=== PATIENT | male | born 1990 | race Caucasian/White ===

== ENCOUNTER 2024-03-03 08:46 | Emergency (ER) | payer MEDICAID, SELFPAY ==
--- NOTE | 2024-03-03 08:45 | RT.EKG_ITS ---
APPROVED REPORT Exam: Resting ECG Reason for Exam: comparison to EKG he brought Patient Location: E HR:71 bpm ECG Measurements Heart Rate 71 AXIS NH 145 P 32 QRSd 86 QRS 16 QT 482 T 16 QTc 525 Conclusion Sinus rhythm...normal P axis, V-rate 60- 99 Prolonged QT interval...QTc >488mS I have reviewed and interpreted ECG and agree with software generated interpretation.
[2024-03-03 08:53] VITALS: BP 158/119; PULSE 74; RESP 18; TEMP 36.2; O2SAT 97
--- NOTE | 2024-03-03 09:10 | ED.GENADUL_ITS ---
Discharge Plan Disposition Patient Disposition: Eloped Discharge Details Chief Complaint: GenMedical Clinical Impression: Prolonged QT interval syndrome Primary Care Provider: Bailey Nevarez ED Provider: Luis Bartholomew Home Meds and New Rx's Prescriptions: No Action ibuprofen 800 MG tablet 800 mg PO TID Qty: 30 0RF methadone 10 MG/ML concentrate 170 mg PO DAILY Patient Comments: @ [facility] clinic Discharge Instructions Referrals: Lidya Hogan [ NON-[facility] STAFF PHYSICIAN] - Toya Sanchez [OSTEOPATHIC DOCTOR] - [facility] General Date/Time Provider Initiated Documentation: 03/03/24 08:54 . 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 He was planning on transitioning to weeklong dosing of his methadone at home, and because of this standard EKG was performed. QT was noted to be long at the clinic, and he was sent in for further assessment. Patient states that he is currently taking 170 mg daily. About a year ago he was 120 mg daily and has been gradually increasing over the last year. He started methadone in 2018. He denies any concerning family history of sudden , cardiac abnormalities, syncope, personal history of syncope, family history of pacemaker defibrillator, or other complaints. He does not take any other medications. He denies any other medication use. No other complaints at this time. No other modifying factors. Related Data Home Medications Medication Instructions Recorded Confirmed ibuprofen 800 mg tablet 800 mg PO TID ##30 03/04/14 03/03/24 methadone 10 mg/mL oral concentrate 170 mg PO DAILY 12/06/15 03/03/24 Previous Rx's Medication Instructions Recorded ibuprofen 800 mg tablet 800 mg PO TID ##30 03/04/14 Allergies Allergy/AdvReac Type Severity Reaction Status Date / Time banana [Banana] Allergy Severe Anaphylaxsi Unverified 03/03/24 08:54 s General Stated Complaint: GenMedical MANOJ: 3 Review of Systems All systems reviewed & are unremarkable except as noted in HPI and below Exam Narrative Exam Narrative: 1.Const: Well-nourished, Well-developed, appearing stated age 2.Eyes: PERRL, no conjunctival injection, and symmetrical lids. 3.ENT: Atraumatic external nose and ears. Moist MM. Neck: Symmetric, trachea midline, No thyromegaly. 4.CVS: +S1/S2, No murmurs or gallops. Peripheral pulses 2+ and equal in all extremities. Brisk capillary refill in all extremities. 5.RESP: Unlabored respiratory effort. Clear to auscultation bilaterally. No wheezes rales or rhonchi 6.GI: Soft, Nontender/Nondistended, No hepatosplenomegaly. No guarding or rebound. 7.MSK: Normocephalic/Atraumatic, Extremities w/o deformity or ttp No cyanosis or clubbing, Normal movement of all extremities 8.Skin: Warm, Dry. No rashes or lesions. 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 Sensation grossly intact, no focal neurologic deficits. 10.Psych: (AAO) x3. Appropriate mood and affect Course Vital Signs Vital signs: Vital Signs Temperature 36.2 C L 03/03/24 08:53 Pulse 74 03/03/24 08:53 Respiratory Rate 18 03/03/24 08:53 Blood Pressure 158/119 H 03/03/24 08:53 Pulse Oximetry 97 03/03/24 08:53 Temperature 36.2 C L 03/03/24 08:53 Temperature Source Skin 03/03/24 08:53 Pulse 74 03/03/24 08:53 Respiratory Rate 18 03/03/24 08:53 Respiratory Effort Normal, Non-Labored 03/03/24 09:03 Respiratory Depth Normal 03/03/24 09:03 Respiratory Pattern Normal 03/03/24 09:03 Blood Pressure 158/119 H 03/03/24 08:53 Blood Pressure Position Sitting 03/03/24 08:53 Pulse Oximetry 97 03/03/24 08:53 Oxygen Delivery Method Room Air 03/03/24 08:53 Oxygen Flow Rate 0 03/03/24 08:53 Pain Level 0 03/03/24 08:53 Medical Decision Making 33-year-old male with a past medical history of 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 He was planning on transitioning to weeklong dosing of his methadone at home, and because of this standard EKG was performed. QT was noted to be long at the clinic, and he was sent in for further assessment. Patient states that he is currently taking 170 mg daily. About a year ago he was 120 mg daily and has been gradually increasing over the last year. He started methadone in 2018. He denies any concerning family histo ry of sudden , cardiac abnormalities, syncope, personal history of syncope, family history of pacemaker defibrillator, or other complaints. He does not take any other medications. He denies any other medication use. No other complaints at this time. No other modifying factors. Exam demonstrates well-appearing male, no acute distress. EKG was performed, sinus rhythm, no significant ST elevations or depressions, QTc is rated at 482, QTc is 525. No evidence of delta wave, epsilon wave, or other acute abnormality. While patient is asymptomatic, the QT is certainly concerning. I would suspect that the most likely causative agent is his elevated methadone dose. I did discuss with him the risks of this, and the worse case scenario which is V. tach/V-fib. And how this can lead to sudden cardiac . Patient understands this. I did discuss the importance on reducing the dose of his methadone for eventually cutting it off. I also recommended that we get blood work to evaluate for electrolyte abnormality that could potentially be a causative agent. Patient understood, and agreed to have additional work done. Unfortunately while the patient was waiting for the blood work he decided to elope. He did not discuss this with nursing staff or myself. He made this decision on his own and gave no suggestions of this before hand during our conversations. Uncertain as to why he left, and did not want complete workup. That being said I did make it extremely clear to him before hand on her initial assessment the risks associated with his prolonged QT syndrome. Lab work was not done. I will forward my note to his methadone practitioner and recommend continue close follow-up. Quality:SDOH Health Related Social Needs: No Data to Display PFSH All Active Problems (Updated 03/03/24 @ 10:48 by Luis Bartholomew DO) Prolonged QT interval syndrome (Acute) Social History Smoking/Tobacco Use Status: Current every day Smoking risk assessment performed?: Yes Alcohol Intake: never Drug use: Current Sobriety Substance use type: marijuana
== END 2024-03-03 10:48 | disposition left against medical advice (07) ==
PROVIDERS: Emergency Provider Student in an Organized Health Care Education/Training Program; PCP Family Medicine
DX: R94.31 Abnormal electrocardiogram [ECG] [EKG] (principal); F11.10 Opioid abuse, uncomplicated; F17.200 Nicotine dependence, unspecified, uncomplicated; Z53.29 Procedure and treatment not carried out because of patient's decision for other reasons
CPT/HCPCS: 80053; 93005; 99284; 83735; 85025; 93010; 99283

== ENCOUNTER 2024-06-23 12:07 | Outpatient (CLI) | payer MEDICAID, SELFPAY ==
--- NOTE | 2024-06-23 12:00 | RT.EKG_ITS ---
APPROVED REPORT Exam: Resting ECG Reason for Exam: NPW Patient Location: O HR:75 bpm ECG Measurements Heart Rate 75 AXIS SD 142 P 37 QRSd 92 QRS 5 QT 461 T 23 QTc 515 Conclusion Sinus rhythm...normal P axis, V-rate 50- 99 LVH by voltage...(R I+S III) >2.50mV
== END 2024-06-23 12:08 | disposition home or self-care (01) ==
LOC: DI.CM 12:08
PROVIDERS: PCP Nurse Practitioner Family; Visit Provider Nurse Practitioner Family
DX: R94.31 Abnormal electrocardiogram [ECG] [EKG] (principal)
CPT/HCPCS: 93010